=== PATIENT | male | born 1995 | race Caucasian/White ===

== ENCOUNTER 2017-12-04 16:54 | Emergency (ER) | END 2017-12-04 20:20 | disposition home or self-care (01) ==

== ENCOUNTER 2018-02-19 17:23 | Emergency (ER) | END 2018-02-19 21:07 | disposition home or self-care (01) ==

== ENCOUNTER 2018-02-27 11:52 | Emergency (ER) | END 2018-02-27 14:24 | disposition home or self-care (01) ==

== ENCOUNTER 2018-10-10 10:26 | Emergency (ER) | payer OTHER ==
[~2018-10-10] VITALS: Wt 106.9 kg
[~2018-10-10 10:26] MED LIST: CIPR500T4 PO; DIAZ5TAB PO; IBUP-1542 PO; LOPE2CAP PO; ONDA4TAB8 PO
[2018-10-10 10:30] VITALS: BP 148/62; PULSE 51; RESP 17
[2018-10-10] MEDS ORDERED: KETOROLAC 30 MG INJ IM STA (12:49)
[2018-10-10] MEDS ORDERED: DEXAMETHASONE 10 MG/ML 1 ML INJ IM ONE (13:00)
[2018-10-10] MEDS ORDERED: METHOCARBAMOL 750 MG TAB PO ONE (13:00)
[2018-10-10] MEDS ORDERED: SULF1TAB31 PO (14:04)
[2018-10-10] MEDS ORDERED: METH750T93 PO (14:04)
[2018-10-10] MEDS ORDERED: ACET-141 PO (14:04)
[2018-10-10] MEDS ORDERED: IBUP-1542 PO (14:04)
--- NOTE | 2018-10-10 14:07 | ERD ---
ER Documentation Chief Complaint Chief Complaint HIP/BACK/KNEE PAIN X1 MONTH, NO INJURY ROS All systems reviewed and are negative except as per history of present illness. Medications Home Meds Active Scripts Sulfamethoxazole/Trimethoprim* (Bactrim Ds* Tablet) 1 Each Tablet, 1 TAB PO BID for cellulitis for 7 Days, #14 TAB Prov:SHAWN JOHNSON 10/10/18 Methocarbamol* (Robaxin*) 750 Mg Tablet, 750 MG PO TID PRN for MUSCLE SPASMS, #30 TAB Prov:SHAWN JOHNSON DO 10/10/18 Acetaminophen* (Acetaminophen*) 500 MG Extra Strength Tablet, 500 MG PO Q4H PRN for PAIN AND OR ELEVATED TEMP, #30 TAB Prov:SHAWN JOHNSON DO 10/10/18 Ibuprofen* (Motrin*) 600 Mg Tab, 600 MG PO Q6H PRN for PAIN AND OR ELEVATED TEMP, #30 TAB Prov:SHAWN JOHNSON DO 10/10/18 Loperamide Hcl* (Imodium*) 2 Mg Capsule, 2 MG PO .AFTER EA LOOSE BM PRN for DIARRHEA, #10 TAB Prov:SAAD MELGAR 02/19/18 Ondansetron Hcl* (Zofran*) 4 Mg Tablet, 4 MG PO Q6H for NAUSEA AND/OR VOMITING, #30 TAB Prov:SAAD MELGAR 02/19/18 Ciprofloxacin Hcl* (Ciprofloxacin Hcl*) 500 Mg Tablet, 500 MG PO BID for 10 Days, TAB Prov:SAAD MELGAR 02/19/18 Diazepam* (Valium*) 5 Mg Tablet, 5 MG PO BID, #10 TAB Prov:SAAD MELGAR 12/04/17 Ibuprofen* (Motrin*) 600 Mg Tab, 600 MG PO Q6, #30 TAB Prov:SAAD MELGAR 12/04/17 Allergies Allergies: Coded Allergies: Penicillins (Verified Allergy, Unknown, 12/04/17) PMhx/Soc History of Surgery: Yes (right hand surgery) Anesthesia Reaction: No Hx Neurological Disorder: No Hx Respiratory Disorders: No Hx Cardiac Disorders: No Hx Psychiatric Problems: No Hx Miscellaneous Medical Probl: No Hx Alcohol Use: Yes Hx Substance Use: Yes (marijuana) Hx Tobacco Use: No Smoking Status: Never smoker Physical Exam Vitals Vital Signs Date Temp Pulse Resp B/P (MAP) Pulse Ox O2 O2 Flow FiO2 Time Delivery Rate 10/10/18 97.9 51 17 148/62 98 10:30 (90) Physical Exam Const: No acute distress Head: Atraumatic Eyes: Normal Conjunctiva ENT: Normal External Ears, Nose and Mouth. Neck: Full range of motion. No meningismus. Resp: Clear to auscultation bilaterally Cardio: Regular rate and rhythm, no murmurs Abd: Soft, non tender, non distended. Normal bowel sounds Skin: No petechiae or rashes Back: No midline or flank tenderness Ext: No cyanosis, or edema Neur: Awake and alert Psych: Normal Mood and Affect Results 24 hrs Current Medications Medications Dose Sig/La Start Time Status Last (Trade) Ordered Route PRN Stop Time Admin Dose Reason Admin Ketorolac 30 mg ONCE STAT 10/10/18 DC 10/10/18 Tromethamine IM 12:49 10/10/18 13:02 (Toradol) 12:50 10 mg ONCE ONCE 10/10/18 DC 10/10/18 Dexamethasone IM 13:00 10/10/18 13:01 (Decadron) 13:01 750 mg ONCE ONCE 10/10/18 DC 10/10/18 Methocarbamol PO 13:00 10/10/18 13:17 (Robaxin) 13:01 Departure Diagnosis: Primary Impression: Low back pain Chronicity: unspecified Back pain laterality: left Sciatica presence: with sciatica Sciatica laterality: sciatica of left side Qualified Codes: M54.42 - Lumbago with sciatica, left side Additional Impressions: Rash Left hip pain Left knee pain Chronicity: acute Qualified Codes: M25.562 - Pain in left knee Condition: Fair Patient Instructions: Self-Care for Skin Rashes, Folliculitis Referrals: [facility] YOU HAVE RECEIVED A MEDICAL SCREENING EXAM AND THE RESULTS INDICATE THAT YOU DO NOT HAVE A CONDITION THAT REQUIRES URGENT TREATMENT IN THE EMERGENCY DEPARTMENT. FURTHER EVALUATION AND TREATMENT OF YOUR CONDITION CAN WAIT UNTIL YOU ARE SEEN IN YOUR DOCTORS OFFICE WITHIN THE NEXT 1-2 DAYS. IT IS YOUR RESPONSIBILITY TO MAKE AN APPOINTMENT FOR FOLOW-UP CARE. IF YOU HAVE A PRIMARY DOCTOR --you should call your primary doctor and schedule an appointment IF YOU DO NOT HAVE A PRIMARY DOCTOR YOU CAN CALL OUR PHYSICIAN REFERRAL HOTLINE AT IF YOU CAN NOT AFFORD TO SEE A PHYSICIAN YOU CAN CHOSE FROM THE FOLLOWING [facility] [address] [facility] [address] [facility] [address] [facility] [address] [facility]. [facility] [address] [facility] [facility] [address] Additional Instructions: Call your primary care doctor TOMORROW for an appointment during the next 1-2 days.See the doctor sooner or return here if your condition worsens before your appointment time. Follow up with primary physician, may need physical therapy SHAWN JOHNSON DO Oct 10, 2018 14:07
[2018-10-10] MEDS ORDERED: MUPI22OI2 TOP (14:11)
[2018-10-10] MEDS ORDERED: HYDR28.334 TP (14:13)
== END 2018-10-10 14:17 | disposition home or self-care (01) ==
LOC: FTE 10:26
DX: M54.42 Lumbago with sciatica, left side (principal); M25.552 Pain in left hip; R21 Rash and other nonspecific skin eruption
CPT/HCPCS: 72100; 96372; J1100; J1885; Z7502; Z7610